=== PATIENT | female | born 1960 | race Caucasian/White ===

== ENCOUNTER 2021-09-25 18:33 | Observation (INO) | payer OTHER, SELFPAY ==
[2021-09-19 15:37] VITALS: BMI 43.1
--- NOTE | 2021-09-19 15:39 | PC.NURSE ---
Report to the Outpatient Waiting Room, entrance under the green pavilion located off [facility], at time _1000_ on date _[id number]_. OR Time: _1200_. - You and your visitor will be asked a series of questions to screen for COVID 19 for your protection. - Only one visitor is allowed at this time. - The patient visitor is requested to leave or wait in car when not with patient. - A mask is required within the hospital. Patients may have clear liquids (water, carbonated beverages, clear teas, apple juice) until 3 hours prior to surgery with a maximum of 20 ounces. - No food from midnight until time of surgery Take the following medications with a SIP of water the morning of surgery: Carvidilol, Gabepentin, and Levothyroxine Medications to discontinue per physician Patient quitting Eliquis 3 days prior to surgery per her cardiologists recommendation.____ Date to take last dose Please no make-up, nail [place] citizen, hairspray, perfume, deodorant, or body powder the day of surgery. No jewelry (including any body piercings) or valuables the day of surgery, leave them at home. Please take a shower or bath the night before, or the morning of, surgery with an antibacterial soap. Wear comfortable, loose fitting clothing. Children are encouraged to wear pajamas. - Jewelry must be removed prior to entering the operating room. Rings and piercings that are not removed may be cut off. - The hospital will not accept responsibility for valuables. - Please leave all valuables, including medications, at home the day of surgery. If you are going home after surgery, a licensed tow bar driver must drive you home. - NO public transportation without another adult. - We recommend that an adult stay with you for 24 hours following discharge. - We also recommend that you do not drive, make important decision, drink alcoholic beverages, or take any drugs that were not prescribed by your health care provider for at least 24 hours after your discharge time. Follow any additional instructions given to you from your surgeon. If you or anyone in your household have experienced Covid symptoms in the past week, please notify your surgeon or the nurse liaison at the phone number below for possible testing. Telephone instructions given to ___Patient and asked if any additional questions and then verbalized understanding. Patient advised to call surgeon office or pre surgery nurse liaison [phone] if any additional questions.
[2021-09-24] VITALS (15 sets, daily range): BP systolic 127–150; BP diastolic 78–96; PULSE 72–96; RESP 10–20; TEMP 36.6–37; O2SAT 93–100
[2021-09-24 10:20] LABS: Glucose Point of Care 204 mg/dl (65-105)
[2021-09-24 10:41] LABS: INR 0.9; Prothrombin Time 12.1 Seconds (11.1-14.7)
[2021-09-24 10:42] LABS: Partial Thromboplastin Time 25.3 SECONDS (22.3-36.8)
[2021-09-24] MEDS: MORPHINE SULFATE INJ (*CRX) 10 MG/ML AMP 2 MG IV PUSH ×5 (12:00→12:55)
[2021-09-24] MEDS: LACTATED RINGERS 1,000 ML 30 ML IV CONT ×2 (12:30→15:03)
--- NOTE | 2021-09-24 12:37 | WPDANESEPPF ---
Anes - Initial Pre Proc Eval Procedure: Operation Date: 09/24/21 12:00 Proposed Procedures p L4-5 Lumbar Elier Laminectomy, Microscopic Lumbar Discectomy - Efrain Hobson MD Date/Time: 09/24/21 12:37 Surgeon: Efrain Hobson MD Pre Op Diagnosis: lumbar disc herniation with spondylosis Patient Data Age: 60 Gender: F Height: 1.7 m Weight: 131.2 kg Last Vital Signs Temp 36.7 C 09/24/21 10:28 Pulse 92 09/24/21 10:28 Resp 20 09/24/21 10:28 BP 141/96 H 09/24/21 10:28 Pulse Ox 99 09/24/21 10:28 Allergies Allergy/AdvReac Type Severity Reaction Status Date / Time latex Allergy Mild Rash Verified 09/24/21 10:26 Sulfa (Sulfonamide Allergy Mild Rash Verified 09/24/21 10:26 Antibiotics) Home Medications Medication Instructions Recorded Confirmed Type apixaban [Eliquis] 5 mg PO QPM 09/19/21 09/24/21 History carvedilol 6.25 mg PO BID 09/19/21 09/24/21 History cyclobenzaprine 10 mg PO TID 09/19/21 09/24/21 History dapagliflozin [Farxiga] 10 mg PO DAILY 09/19/21 09/24/21 History docusate sodium [Colace] 50 mg PO DAILY 09/19/21 09/24/21 History furosemide 40 mg PO QAM 09/19/21 09/24/21 History gabapentin 600 mg PO BID 09/19/21 09/24/21 History glipizide 20 mg PO QAM 09/19/21 09/24/21 History hydrocodone-acetaminophen 1 tablet PO Q6H PRN 09/19/21 09/24/21 History insulin glargine U-300 conc 30 unit SUBCUT HS 09/19/21 09/24/21 History [Toujeo SoloStar U-300 Insulin] insulin lispro [Humalog KwikPen 25 unit SUBCUT TID 09/19/21 09/24/21 History Insulin] levothyroxine 25 mcg PO QAM 09/19/21 09/24/21 History loratadine 10 mg PO DAILY 09/19/21 09/24/21 History losartan 25 mg PO QPM 09/19/21 09/24/21 History potassium chloride 10 meq PO BID 09/19/21 09/24/21 History prednisone 5 mg PO DAILY 09/19/21 09/24/21 History rosuvastatin 20 mg PO QPM 09/19/21 09/24/21 History triamterene-hydrochlorothiazid 1 cap PO BID 09/19/21 09/24/21 History Laboratory Tests 09/24/21 09/24/21 10:11 10:12 PT 12.1 Seconds Seconds (11.1-14.7) INR 0.9 APTT 25.3 SECONDS SECONDS (22.3-36.8) POC Capillary Glucose 204 mg/dl H mg/dl (65-105) Patient hx anesthesia problems: none Family hx anesthesia problems: none Results Review: All pre-operative results and documents have been reviewed as part of the pre-operative evaluation. [facility] Past Medical History Medical History (Updated 09/24/21 @ 12:38 by James Edmonds MD) Diabetes HTN (hypertension) Hyperlipidemia Morbid obesity MIRTA (obstructive sleep apnea) Surgical History Surgical History (Updated 09/24/21 @ 12:38 by James Edmonds MD) H/O arthroscopic knee surgery History of section History of cholecystectomy Social History Social History Smoking status: Never smoker Living arrangements: with family Spiritual care concerns: No Anes - Eval Final PreProcedure Day of Procedure 09/24/21 12:37 Patient weight: morbidly obese Heart: regular rate and rhythm Lungs: clear to auscultation Airway: Mallampati scale class II Neurological: alert and oriented Last oral intake: >/= 8 hours ASA classification: IV Emergent: no Anesthetic plan: proceed Anesthesia type and monitoring: general ETT and standard monitoring Results Review: All pre-operative results and documents have been reviewed as part of the pre-operative evaluation. Informed Consent: The patient's anesthetic plan and its attendant risks and benefits were discussed with the patient/family/POA. Questions were solicited and answers provided to the satisfaction of the patient/family/POA.
--- NOTE | 2021-09-24 13:01 | PM.IMHP ---
H&P: HPI History of Present Illness Date/Time: 09/24/21 13:01 Ms. Troy is a 60-year-old female with back and bilateral lower extremity pain alternating from left right who presents for a right-sided hemilaminectomy for bilateral canal decompression and microdiskectomy. She has not changed since we saw her last. She has pain that radiates ultimately into the right and left lower extremities below the knee worse with ambulation and better with rest. She also has back pain. She has rheumatoid arthritis, takes steroids and has diabetes. She is not having any new bowel or bladder difficulty. She does not note consistent specific muscle group weakness of either lower extremity nor any dermatomal numbness. Chief Complaint: Back and leg pain Review of Systems Review of Systems: Shortness of breath with the surgeon, leg cramping, lower extremity edema, high blood pressure, palpitations, constipation, diarrhea, arthritis, back pain, decreased range of motion of the back, gout, joint pain, joint stiffness, extremity weakness, balance issues, numbness and tingling of her extremities, fatigue, Negative on 12 systems except as noted above PMFSH Past Medical History Medical History Diabetes HTN (hypertension) Hyperlipidemia Morbid obesity MIRTA (obstructive sleep apnea) Surgical History Surgical History H/O arthroscopic knee surgery History of section History of cholecystectomy Social History Social History Smoking status: Never smoker Living arrangements: with family Spiritual care concerns: No Meds Home Medications and Allergies Home Medications Medication Instructions Recorded Confirmed Type apixaban [Eliquis] 5 mg PO QPM 09/19/21 09/24/21 History carvedilol 6.25 mg PO BID 09/19/21 09/24/21 History cyclobenzaprine 10 mg PO TID 09/19/21 09/24/21 History dapagliflozin [Farxiga] 10 mg PO DAILY 09/19/21 09/24/21 History docusate sodium [Colace] 50 mg PO DAILY 09/19/21 09/24/21 History furosemide 40 mg PO QAM 09/19/21 09/24/21 History gabapentin 600 mg PO BID 09/19/21 09/24/21 History glipizide 20 mg PO QAM 09/19/21 09/24/21 History hydrocodone-acetaminophen 1 tablet PO Q6H PRN 09/19/21 09/24/21 History insulin glargine U-300 conc 30 unit SUBCUT HS 09/19/21 09/24/21 History [Touwillyo SoloStar U-300 Insulin] insulin lispro [Humalog KwikPen 25 unit SUBCUT TID 09/19/21 09/24/21 History Insulin] levothyroxine 25 mcg PO QAM 09/19/21 09/24/21 History loratadine 10 mg PO DAILY 09/19/21 09/24/21 History losartan 25 mg PO QPM 09/19/21 09/24/21 History potassium chloride 10 meq PO BID 09/19/21 09/24/21 History prednisone 5 mg PO DAILY 09/19/21 09/24/21 History rosuvastatin 20 mg PO QPM 09/19/21 09/24/21 History triamterene-hydrochlorothiazid 1 cap PO BID 09/19/21 09/24/21 History Allergies Allergy/AdvReac Type Severity Reaction Status Date / Time latex Allergy Mild Rash Verified 09/24/21 10:26 Sulfa (Sulfonamide Allergy Mild Rash Verified 09/24/21 10:26 Antibiotics) Vital Signs Vital Signs - 24 hr 09/24/21 10:28 Temperature 98.1 F Pulse Rate 92 Respiratory Rate 20 Blood Pressure 141/96 H Pulse Oximetry 99 Exam Narrative: The patient is a normal appearing obese white female supine in a chair at the side of the bed in modest distress. She is awake, alert, oriented x3, with good fund of knowledge, recall events and fluent speech. Strength is normal to direct confrontation in all muscle groups of the bilateral lower extremities with some giveaway weakness and poor effort. Sensation is intact to light touch throughout the lower extremities in the supine position. Clear to auscultation Regular rate and rhythm Assessment and Plan Additional Plan Ms. Troy is a 60-year-old female with back and leg pain related to the L4-5 proce
[2021-09-24] MEDS: ceFAZolin 3 GM/D5W 100 ML 100 ML IVPB (13:05)
--- NOTE | 2021-09-24 13:08 | WPDHPUPDATE1 ---
History and Physical Update Update Date/Time: 09/24/21 13:08 History and Physical has been reviewed, including an updated exam of the patient. There are NO changes in the patient's condition. Risks, benefits, and alternatives have been discussed and questions answered. Patient agrees to proceed with procedure.
[2021-09-24] MEDS: LIDO 1%/EPINEPHRINE/PF 1:200,000 30 ML VIAL XX (14:22)
--- NOTE | 2021-09-24 14:59 | W.PM.PROC2 ---
Procedure Note - Detailed Date of Procedure 09/24/21 Pre-op Diagnosis lumbar disc herniation with spondylosis Post-op Diagnosis Same Procedure Performed Right L4-5 hemilaminectomy and microscopic lumbar diskectomy Surgeon Efrain Hobson MD Customer Resource Specialist Rocio Anesthesia General Indications Karli is a 60-year-old female with back and leg pain related to spondylosis, stenosis and herniated nucleus pulposus at L4-5 who presents for decompression. Findings Herniated disc mostly reabsorbed, spondylosis, lateral recess stenosis Description of Procedure Karli was brought to the operating room in the supine position, was sedated, intubated and placed under general anesthesia in routine fashion. She was then turned into the prone position on a Jaime frame. The area of operation on her back was examined, marked for incision, prepped and draped in routine sterile fashion. Incision was marked over the L4 and L5 spinous processes in the midline. This area was injected with 0.5% lidocaine with [id number] epinephrine. Intravenous antibiotics given prior to incision. Incision was made 10 blade scalpel down to the lumbodorsal fascia. A subperiosteal dissection of the muscle and soft tissue away from the spinous process and lamina at L4-L5 on the right was performed with a subperiosteal elevator and Bovie cautery. A verifying x-ray was obtained to verify the level of operation. At the L4-5 level a Midas Dionicio drill with an a.m. 8 bit was used to perform a hemilaminectomy and medial facetectomy. Under microscopy the yellow ligament was lifted and removed piecemeal using Kerrison punches. This exposed the dura below. In the lateral epidural space a curved curette was used to define a plane with the dura and additional bone and ligament removed with Kerrison punches. This was done 1st if Petterchak laterally and contralaterally after the lamina and spinous process were undercut with the drill. This was all done under microscopy. The thecal sac was retracted medially. No disc herniation was noted in the epidural space. The axilla of the L5 nerve was explored and no disc material was found in this location. There was no disc material found superiorly. The wound was then copiously irrigated with bacitracin irrigation all bleeding was stopped with bipolar and Bovie cautery and FloSeal. Patient was then allowed to wake up in the operating room was taken to the recovery room in stable condition. There were no immediate complications of this operation. All counts were reported correct at the end of the case. Blood loss was 25 cc. The patient was neurologically at her baseline postoperatively. Implants none Estimated Blood Loss 25.0 IV Fluids 1,000 Drains No Complications No immediate complications Condition Stable Disposition PACU
[2021-09-24 15:19] LABS: Glucose Point of Care 162 mg/dl (65-105)
[2021-09-24] MEDS: fentaNYL CITRATE INJ (*CRX) 100 MCG/2 ML VIAL 25 MCG IV PUSH ×6 (15:39→16:41)
[2021-09-24] MEDS: CYCLOBENZAPRINE HCL 10 MG TABLET PO (17:38)
[2021-09-24] MEDS: HYDROcodone/acetaminophen (*CRX) 10-325 MG TABLET 1 TAB PO ×2 (17:38→22:07)
[2021-09-24] MEDS: KCL 20 MEQ/D5/0.45% SOD CHL 1,000 ML 100 ML IV CONT (18:20)
[2021-09-24] MEDS: MORPHINE SULFATE (*CRX) 2 MG/ML INJ IV PUSH ×2 (18:20→23:11)
[2021-09-24] MEDS: carvediloL 6.25 MG TABLET PO (18:20)
[2021-09-24] MEDS: GABAPENTIN 300 MG CAPSULE 600 MG PO (18:21)
[2021-09-24] MEDS: TRIAMTERENE 37.5 MG/HCTZ 25 MG (MAXZIDE) TABLET 1 TAB PO (18:21)
[2021-09-24] MEDS: POTASSIUM CHLORIDE 10 MEQ TABLET.ER PO (18:21)
[2021-09-24] MEDS: LOSARTAN POTASSIUM 25 MG TABLET PO (18:22)
[2021-09-24] MEDS: ROSUVASTATIN 10 MG TABLET 20 MG PO (18:22)
[2021-09-24 20:28] LABS: Glucose Point of Care 374 mg/dl (65-105)
[2021-09-24] MEDS: INSULIN GLARGINE (*BKC) 100 UNITS/ML 30 UNITS SUB-Q (20:40)
[2021-09-24] MEDS: DOCUSATE SODIUM 100 MG CAPSULE PO (20:40)
[2021-09-25] VITALS (7 sets, daily range): BP systolic 114–160; BP diastolic 49–89; PULSE 61–103; RESP 16–20; TEMP 36.4–38; O2SAT 95–99
--- NOTE | ~2021-09-25 | XR_ITS ---
CORRECTED REPORT EXAMINATION CHANGED TO XR fluoroscopy no charge 10/16/2021 sef EXAMINATION: XR fluoroscopy no charge DATE: 09/24/2021 12:55 CDT INDICATION: L4-5 LAMINECTOMY, MICRO LUMBAR DISCECTOMY . TECHNIQUE: 2 fluoroscopic images of the lower lumbar spine were obtained during L4-5 laminectomy, microlumbar discectomy performed by the surgeon. I was not present in the operating room. Fluoroscopy exposure time was 4.1 seconds. Cumulative dose 3.36 mGy. COMPARISON: None FINDINGS: The last fully formed disc is presumed to represent L5-S1. A surgical probe localizes the L5 spinous process and vertebral body. Grade 1 anterolisthesis of L4 on L5. IMPRESSION: Fluoroscopic documentation of intraoperative lumbar spinal level identification. Reviewed, dictated and finalized at location K. MTDD IMPRESSION: Fluoroscopic documentation of intraoperative lumbar spinal level identification .
[2021-09-25] MEDS: CYCLOBENZAPRINE HCL 10 MG TABLET PO ×4 (01:04→23:13)
[2021-09-25] MEDS: MORPHINE SULFATE (*CRX) 2 MG/ML INJ IV PUSH ×5 (01:04→23:12)
[2021-09-25] MEDS: DEXAMETHASONE 2 MG TABLET 10 MG PO (02:01)
[2021-09-25] MEDS: HYDROcodone/acetaminophen (*CRX) 10-325 MG TABLET 1 TAB PO ×5 (04:15→21:22)
[2021-09-25 06:17] LABS: Potassium 4.8 mmol/L (3.4-5.0)
[2021-09-25] MEDS: LEVOTHYROXINE SODIUM 25 MCG TABLET PO (06:30)
[2021-09-25 07:21] LABS: Glucose Point of Care 279 mg/dl (65-105)
[2021-09-25] MEDS: GABAPENTIN 300 MG CAPSULE 600 MG PO ×2 (09:32→16:35)
[2021-09-25] MEDS: glipiZIDE XL 5 MG TABCR 20 MG PO (09:32)
[2021-09-25] MEDS: DOCUSATE SODIUM 100 MG CAPSULE PO ×2 (09:32→20:22)
[2021-09-25] MEDS: predniSONE 5 MG TABLET PO (09:32)
[2021-09-25] MEDS: TRIAMTERENE 37.5 MG/HCTZ 25 MG (MAXZIDE) TABLET 1 TAB PO ×2 (09:32→16:36)
[2021-09-25] MEDS: FUROSEMIDE 40 MG TABLET PO (09:32)
[2021-09-25] MEDS: carvediloL 6.25 MG TABLET PO ×2 (09:32→16:36)
[2021-09-25] MEDS: LORATADINE 10 MG TABLET PO (09:32)
[2021-09-25] MEDS: EMPAGLIFLOZIN 25 MG TABLET PO (09:33)
[2021-09-25] MEDS: POTASSIUM CHLORIDE 10 MEQ TABLET.ER PO ×2 (09:33→16:36)
[2021-09-25] MEDS: INSULIN ASPART (*BKC) 100 UNITS/ML 25 UNITS SUB-Q ×3 (09:35→16:36)
[2021-09-25] MEDS: KCL 20 MEQ/D5/0.45% SOD CHL 1,000 ML 100 ML IV CONT (09:39)
[2021-09-25] MEDS: HYDROcodone/acetaminophen (*CRX) 5-325 MG TABLET 1 TAB PO (10:09)
[2021-09-25 11:31] LABS: Glucose Point of Care 404 mg/dl (65-105)
[2021-09-25 16:33] LABS: Glucose Point of Care 310 mg/dl (65-105)
--- NOTE | 2021-09-25 18:25 | WPDPN ---
Progress Note: A&P Assessment and Plan (1) Lumbar stenosis: Code(s): M48.061 - Spinal stenosis, lumbar region without neurogenic claudication Status: Acute Plan Ms. Troy is doing as expected postop day 1 status post hemilaminectomy at L4-5. She should continue with activity as tolerated. We will have physical therapy stop by. She is neurologically intact. If she is doing well she may be discharged tomorrow. Pain control is her main issue. Subjective Date/time seen: 09/25/21 18:25 Ms. Troy is postop day 1 status post right L4-5 hemilaminectomy. Her main complaint is of pain in her back near the operation radiating into her proximal lower extremities. She has been ambulatory today and been up and down several times. She is not having any new bowel or bladder or other constitutional problems. She reports no new neurologic issues in her legs. Exam Neuro: Other: Strength is normal in the bilateral lower extremities to direct confrontation Sensation is intact to light touch in lower extremities Her dressing is clean dry and intact. Objective Data Vital Signs Vital Signs: Vital Signs - 24 hr 09/24/21 19:15 09/24/21 20:01 09/24/21 20:00 Temperature 98.2 F 98.1 F Pulse Rate 94 96 96 Respiratory Rate 18 18 18 Blood Pressure 147/78 H 139/79 Pulse Oximetry 96 96 96 Oxygen Delivery Nasal Cannula Oxygen Flow Rate 2 09/25/21 00:01 09/25/21 04:00 09/25/21 08:00 Temperature 100.4 F H 97.6 F 97.6 F Pulse Rate 61 92 94 Respiratory Rate 18 18 18 Blood Pressure 139/49 L 160/89 H 136/89 Pulse Oximetry 96 99 98 Oxygen Delivery Oxygen Flow Rate 09/25/21 12:00 09/25/21 09:45 09/25/21 16:00 Temperature 97.9 F 98.0 F Pulse Rate 92 93 Respiratory Rate 20 20 Blood Pressure 149/82 H 145/78 H Pulse Oximetry 99 99 Oxygen Delivery Room Air Oxygen Flow Rate Intake/Output Intake/Output: Intake & Output 09/22/21 09/23/21 09/24/21 09/25/21 23:59 23:59 23:59 23:59 Intake Total 2800 2500 Output Total 700 Balance 2800 1800 Meds/Results Medications: Active Medications Generic Name Dose Route Start Last Admin Trade Name Freq PRN Reason Stop Dose Admin Hydrocodone Bitart/Acetaminophen 1 tab 09/24/21 15:05 09/25/21 10:09 Hydrocodone/Acetaminophen (*Crx) 5-325 Mg Tablet PO 1 tab Q4H PRN Administration Pain Rated 4-6 Hydrocodone Bitart/Acetaminophen 1 tab 09/24/21 15:05 09/25/21 16:35 Hydrocodone/Acetaminophen (*Crx) 10-325 Mg Tablet PO 1 tab Q4H PRN Administration Pain Rated 7-10 Al Hydrox/Mg Hydrox/Simethicone 20 ml 09/24/21 15:05 Mag Hydrox/Al Hydrox/Simeth 30 Ml Udc PO Q4H PRN Indigestion/Heartburn Benzocaine 1 lozenge 09/24/21 18:29 Benzocaine/Menthol (*Bkc) 18 Ea Lozenge PO PRN PRN Sore Throat Bisacodyl 10 mg 09/24/21 15:05 Bisacodyl 10 Mg Suppository RECTAL DAILY PRN Constipation Carvedilol 6.25 mg 09/24/21 17:00 09/25/21 16:36 Carvedilol 6.25 Mg Tablet PO 6.25 mg BID MONI Administration Cyclobenzaprine HCl 10 mg 09/24/21 15:05 09/25/21 16:35 Cyclobenzaprine Hcl 10 Mg Tablet PO 10 mg TID PRN Administration Muscle Spasms Docusate Sodium 100 mg 09/24/21 21:00 09/25/21 09:32 Docusate Sodium 100 Mg Capsule PO 100 mg Q12HR MONI Administration Empagliflozin 25 mg 09/25/21 09:00 09/25/21 09:33 Empagliflozin 25 Mg Tablet PO 25 mg DAILY MONI Administration Furosemide 40 mg 09/25/21 09:00 09/25/21 09:32 Furosemide 40 Mg Tablet PO 40 mg QAM MONI Administration Gabapentin 600 mg 09/24/21 17:00 09/25/21 16:35 Gabapentin 300 Mg Capsule PO 600 mg BID MONI Administration Glipizide 20 mg 09/25/21 09:00 09/25/21 09:32 Glipizide Xl 5 Mg Tabcr PO 20 mg QAM MONI Administration Potassium Chloride/Dextrose/Sod Cl 1,000 mls @ 100 mls/hr 09/24/21 15:05 09/25/21 13:40 Kcl 20 Meq/D5/0.45% Sod Chl IV CONT Not Give
[2021-09-25] MEDS: LOSARTAN POTASSIUM 25 MG TABLET PO (20:22)
[2021-09-25] MEDS: ROSUVASTATIN 10 MG TABLET 20 MG PO (20:22)
[2021-09-25] MEDS: INSULIN GLARGINE (*BKC) 100 UNITS/ML 30 UNITS SUB-Q (20:22)
[2021-09-25 21:15] LABS: Glucose Point of Care 297 mg/dl (65-105)
[2021-09-25] MEDS: WATER FOR IRRIGATION, STERILE 1,000 ML BOTTLE 1000 ML (23:05)
[2021-09-26] VITALS (7 sets, daily range): BP systolic 142–150; BP diastolic 79–84; PULSE 74–100; RESP 13–18; TEMP 36.3–36.6; O2SAT 95–100
[2021-09-26] MEDS: HYDROcodone/acetaminophen (*CRX) 10-325 MG TABLET 1 TAB PO ×4 (04:13→20:00)
[2021-09-26] MEDS: LEVOTHYROXINE SODIUM 25 MCG TABLET PO (05:18)
[2021-09-26 08:02] LABS: Glucose Point of Care 185 mg/dl (65-105)
--- NOTE | 2021-09-26 08:08 | WPDPN ---
Progress Note: A&P Assessment and Plan (1) Lumbar stenosis: Code(s): M48.061 - Spinal stenosis, lumbar region without neurogenic claudication Status: Acute Plan Ms. Troy is postop day 2 status post hemilaminectomy at L4-5. Physical therapy will see her this morning. If she is making transfers independently and ambulating that she may be discharged home. I will give her 10mg of Decadron this morning to decrease inflammation in her nerve. Discharge instructions were given. Subjective Date/time seen: 09/26/21 08:0 Karli is postop day 2 status post right-sided L4-5 hemilaminectomy for stenosis and disc herniation. She is doing somewhat better this morning. She has some residual discomfort in her right lower extremity. The left lower extremity is better. She is not having any new bowel or bladder or other constitutional problems. She has no new neurologic issues in her leg Exam Neuro: Other: Strength and sensation are normal in the bilateral lower extremities to direct confrontation Sensation is intact to light touch throughout the lower extremities Dressing is clean, dry and intact. Objective Data Vital Signs Vital Signs: Vital Signs - 24 hr 09/25/21 12:00 09/25/21 09:45 09/25/21 16:00 Temperature 97.9 F 98.0 F Pulse Rate 92 93 Respiratory Rate 20 20 Blood Pressure 149/82 H 145/78 H Pulse Oximetry 99 99 Oxygen Delivery Room Air 09/25/21 19:56 09/25/21 23:13 09/26/21 02:52 Temperature 97.8 F Pulse Rate 95 103 H 96 Respiratory Rate 18 16 13 Blood Pressure 114/79 Pulse Oximetry 96 95 95 Oxygen Delivery Autopap Autopap 09/26/21 04:03 09/26/21 04:58 Temperature 97.3 F L Pulse Rate 74 99 Respiratory Rate 16 14 Blood Pressure 142/84 H Pulse Oximetry 96 95 Oxygen Delivery Autopap Intake/Output Intake/Output: Intake & Output 09/23/21 09/24/21 09/25/21 09/26/21 23:59 23:59 23:59 23:59 Intake Total 2800 2500 450 Output Total 700 Balance 2800 1800 450 Meds/Results Medications: Active Medications Generic Name Dose Route Start Last Admin Trade Name Freq PRN Reason Stop Dose Admin Hydrocodone Bitart/Acetaminophen 1 tab 09/24/21 15:05 09/25/21 10:09 Hydrocodone/Acetaminophen (*Crx) 5-325 Mg Tablet PO 1 tab Q4H PRN Administration Pain Rated 4-6 Hydrocodone Bitart/Acetaminophen 1 tab 09/24/21 15:05 09/26/21 04:13 Hydrocodone/Acetaminophen (*Crx) 10-325 Mg Tablet PO 1 tab Q4H PRN Administration Pain Rated 7-10 Al Hydrox/Mg Hydrox/Simethicone 20 ml 09/24/21 15:05 Mag Hydrox/Al Hydrox/Simeth 30 Ml Udc PO Q4H PRN Indigestion/Heartburn Benzocaine 1 lozenge 09/24/21 18:29 Benzocaine/Menthol (*Bkc) 18 Ea Lozenge PO PRN PRN Sore Throat Bisacodyl 10 mg 09/24/21 15:05 Bisacodyl 10 Mg Suppository RECTAL DAILY PRN Constipation Carvedilol 6.25 mg 09/24/21 17:00 09/25/21 16:36 Carvedilol 6.25 Mg Tablet PO 6.25 mg BID MONI Administration Cyclobenzaprine HCl 10 mg 09/24/21 15:05 09/25/21 23:13 Cyclobenzaprine Hcl 10 Mg Tablet PO 10 mg TID PRN Administration Muscle Spasms Docusate Sodium 100 mg 09/24/21 21:00 09/25/21 20:22 Docusate Sodium 100 Mg Capsule PO 100 mg Q12HR MONI Administration Empagliflozin 25 mg 09/25/21 09:00 09/25/21 09:33 Empagliflozin 25 Mg Tablet PO 25 mg DAILY MONI Administration Furosemide 40 mg 09/25/21 09:00 09/25/21 09:32 Furosemide 40 Mg Tablet PO 40 mg QAM MONI Administration Gabapentin 600 mg 09/24/21 17:00 09/25/21 16:35 Gabapentin 300 Mg Capsule PO 600 mg BID MONI Administration Glipizide 20 mg 09/25/21 09:00 09/25/21 09:32 Glipizide Xl 5 Mg Tabcr PO 20 mg QAM MONI Administration Potassium Chloride/Dextrose/Sod Cl 1,000 mls @ 100 mls/hr 09/24/21 15:05 09/25/21 20:00 Kcl 20 Meq/D5/0.45% Sod Chl IV CONT Not Given .Q10H MNOI Insulin Aspart 25 units 09/25/21 08:00 0
[2021-09-26] MEDS: INSULIN ASPART (*BKC) 100 UNITS/ML 25 UNITS SUB-Q ×3 (09:17→16:49)
[2021-09-26] MEDS: carvediloL 6.25 MG TABLET PO ×2 (09:19→16:52)
[2021-09-26] MEDS: predniSONE 5 MG TABLET PO (09:19)
[2021-09-26] MEDS: TRIAMTERENE 37.5 MG/HCTZ 25 MG (MAXZIDE) TABLET 1 TAB PO ×2 (09:19→16:52)
[2021-09-26] MEDS: LORATADINE 10 MG TABLET PO (09:19)
[2021-09-26] MEDS: glipiZIDE XL 5 MG TABCR 20 MG PO (09:19)
[2021-09-26] MEDS: GABAPENTIN 300 MG CAPSULE 600 MG PO ×2 (09:19→16:51)
[2021-09-26] MEDS: POTASSIUM CHLORIDE 10 MEQ TABLET.ER PO ×2 (09:19→16:52)
[2021-09-26] MEDS: FUROSEMIDE 40 MG TABLET PO (09:19)
[2021-09-26] MEDS: EMPAGLIFLOZIN 25 MG TABLET PO (09:20)
[2021-09-26] MEDS: DOCUSATE SODIUM 100 MG CAPSULE PO ×2 (09:20→20:00)
[2021-09-26 11:48] LABS: Glucose Point of Care 178 mg/dl (65-105)
[2021-09-26] MEDS: CYCLOBENZAPRINE HCL 10 MG TABLET PO ×2 (13:23→16:55)
[2021-09-26 16:35] LABS: Glucose Point of Care 334 mg/dl (65-105)
[2021-09-26] MEDS: INSULIN ASPART (*BKC) 100 UNITS/ML SUB-Q (16:49)
[2021-09-26] MEDS: ROSUVASTATIN 10 MG TABLET 20 MG PO (16:53)
[2021-09-26] MEDS: LOSARTAN POTASSIUM 25 MG TABLET PO (16:53)
[2021-09-26] MEDS: HYDROcodone/acetaminophen (*CRX) 5-325 MG TABLET 1 TAB PO (16:55)
[2021-09-26] MEDS: INSULIN GLARGINE (*BKC) 100 UNITS/ML 30 UNITS SUB-Q (20:00)
[2021-09-26 20:51] LABS: Glucose Point of Care 372 mg/dl (65-105)
[2021-09-26 22:33] LABS: Glucose Point of Care 287 mg/dl (65-105)
[2021-09-27] MEDS: HYDROcodone/acetaminophen (*CRX) 10-325 MG TABLET 1 TAB PO ×3 (00:06→10:33)
[2021-09-27] MEDS: CYCLOBENZAPRINE HCL 10 MG TABLET PO ×3 (00:06→13:10)
[2021-09-27 00:10] VITALS: PULSE 94; RESP 14; O2SAT 96
[2021-09-27 04:17] VITALS: BP 146/80; PULSE 72; RESP 18; TEMP 36.4; O2SAT 98
[2021-09-27 04:20] VITALS: PULSE 76; RESP 14; O2SAT 96
[2021-09-27] MEDS: LEVOTHYROXINE SODIUM 25 MCG TABLET PO (05:46)
[2021-09-27 06:35] LABS: Potassium 3.8 mmol/L (3.4-5.0)
[2021-09-27 07:51] LABS: Glucose Point of Care 194 mg/dl (65-105)
[2021-09-27 09:00] VITALS: BP 142/76; PULSE 75; RESP 18; TEMP 36.2; O2SAT 98
[2021-09-27] MEDS: POTASSIUM CHLORIDE 10 MEQ TABLET.ER PO (10:33)
[2021-09-27] MEDS: carvediloL 6.25 MG TABLET PO (10:34)
[2021-09-27] MEDS: predniSONE 5 MG TABLET PO (10:34)
[2021-09-27] MEDS: LORATADINE 10 MG TABLET PO (10:34)
[2021-09-27] MEDS: EMPAGLIFLOZIN 25 MG TABLET PO (10:34)
[2021-09-27] MEDS: GABAPENTIN 300 MG CAPSULE 600 MG PO (10:34)
[2021-09-27] MEDS: glipiZIDE XL 5 MG TABCR 20 MG PO (10:34)
[2021-09-27] MEDS: TRIAMTERENE 37.5 MG/HCTZ 25 MG (MAXZIDE) TABLET 1 TAB PO (10:34)
[2021-09-27] MEDS: FUROSEMIDE 40 MG TABLET PO (10:34)
[2021-09-27] MEDS: DOCUSATE SODIUM 100 MG CAPSULE PO (10:42)
[2021-09-27] MEDS: INSULIN ASPART (*BKC) 100 UNITS/ML 25 UNITS SUB-Q ×2 (10:43→13:01)
[2021-09-27 11:51] LABS: Glucose Point of Care 295 mg/dl (65-105)
[2021-09-27] MEDS: INSULIN ASPART (*BKC) 100 UNITS/ML SUB-Q (13:01)
[2021-09-27] MEDS: HYDROcodone/acetaminophen (*CRX) 5-325 MG TABLET 1 TAB PO (13:10)
--- NOTE | 2021-11-12 17:04 | PM.DS ---
DS: Admitting Diagnosis Discharge Date 09/27/21 Admitting Diagnosis Spondylolisthesis, lumbar disc herniation, lumbar stenosis DS: Discharge Diagnosis Discharge Diagnosis (1) Lumbar stenosis: Code(s): M48.061 - Spinal stenosis, lumbar region without neurogenic claudication Status: Acute DS: Summary Hospital Course Hospital Course: Ms. Troy was taken to the operating room on 09/24 21 with the aforementioned operation was performed without complication. This was a right L4-5 hemilaminectomy and microdiskectomy for herniated disc and stenosis. She went to the floor postoperatively. Physical and occupational therapy were involved in her care. She was slow to react ambulate. She had pain control issues. However, by the time of her discharge she was eating, ambulating, emptying her bladder and her pain was under control with by mouth pain medicine. Her wound remained clean dry and intact. She was afebrile with stable vital signs. She was therefore allowed to be discharged to home. She remained neurologically intact throughout her hospitalization. Status at Discharge Cognitive/behavioral status at discharge: Improved Time Spent with Patient Time attestation: Total time spent providing and/or coordinating discharge services: Exam Narrative: at discharge the patient's strength was normal in the bilateral lower extremities to direct confrontation, sensation was intact to light touch throughout the lower extremities. Her wound was clean, dry and intact. She was making transfers and ambulating independently with some antalgia. Discharge Plan Discharge Attending physician on discharge: Efrain Hobson Consulting providers: Ashley Islas NP ; Alfredo Rosen Discharging Clinician: Efrain Hobson Anticipated Discharge Date/Time: 09/27/21 17:08 Patient Disposition: Home Health Service Activity: may shower and may drive after 2 weeks Diet: as tolerated Discharge Instructions: Remove dressing tomorrow morning. No lifting more than 10 lb. No bending and twisting at the waist while standing. Water may run over the dressing and wound. Pat dry. Do not scrub or a immerse. Care Coordination: Patient to have [facility] for PT/OT eval and treat, and care home. They can be reached at [phone]. RN Please fax discharge instructions to [phone]. Patient Instructions: Antibiotic Form, Laminectomy (DC) Stand Alone Forms: General Discharge Information Follow-up/Referrals: Efrain Hobson MD [Physician] - Discharge Medications: New hydrocodone-acetaminophen 5-325 mg tablet 1 tablet PO Q4H PRN (Reason: Pain Rated 4-6) Qty: 30 0RF Rx Instructions: May take 1 or 2 pills at each dose point. Continued cyclobenzaprine 10 mg tablet 10 mg PO TID furosemide 40 mg tablet 40 mg PO QAM carvedilol 6.25 mg tablet 6.25 mg PO BID glipizide 10 mg tablet extended release 24hr 20 mg PO QAM prednisone 5 mg tablet 5 mg PO DAILY docusate sodium 50 mg Capsule 50 mg PO DAILY potassium chloride 10 mEq tablet extended release 10 meq PO BID triamterene-hydrochlorothiazid 37.5-25 mg capsule 1 cap PO BID levothyroxine 25 mcg tablet 25 mcg PO QAM losartan 25 mg tablet 25 mg PO QPM gabapentin 300 mg capsule 600 mg PO BID loratadine 10 mg tablet 10 mg PO DAILY rosuvastatin 20 mg tablet 20 mg PO QPM Farxiga 10 mg tablet 10 mg PO DAILY insulin lispro [Humalog KwikPen Insulin] 100 unit/mL insulin pen 25 unit SUBCUT TID Touwillyo SoloStar U-300 Insulin 300 unit/mL (1.5 mL) insulin pen 30 unit SUBCUT HS Held Eliquis 5 mg tablet 5 mg PO QPM Hold Instructions: Resume on 10/01/21. may resume 1 week after surgery Rx Instructions: quitting 3 days before surgery per sales lead. Discontinued hydrocodone-acetaminophen 7.5-325 mg tablet 1
== END 2021-09-27 13:55 | disposition home health service (06) ==
LOC: ANHSURGERY 19:20 → ANH3MED 19:20
PROVIDERS: Anesthesiology; Admitting Provider Neurological Surgery; Visit Provider Neurological Surgery
PROC: (CPT 63030; principal; 2021-09-24 12:00)
DX: M51.26 Other intervertebral disc displacement, lumbar region (principal); M47.896 Other spondylosis, lumbar region; M48.061 Spinal stenosis, lumbar region without neurogenic claudication; E11.9 Type 2 diabetes mellitus without complications; I10 Essential (primary) hypertension; E78.5 Hyperlipidemia, unspecified; G47.33 Obstructive sleep apnea (adult) (pediatric); E66.01 Morbid (severe) obesity due to excess calories; Z68.42 Body mass index [BMI] 45.0-49.9, adult; Z79.01 Long term (current) use of anticoagulants; Z79.84 Long term (current) use of oral hypoglycemic drugs; Z79.4 Long term (current) use of insulin; Z79.891 Long term (current) use of opiate analgesic; Z79.52 Long term (current) use of systemic steroids
CPT/HCPCS: 63030; 36415; 77002; 82948; 84132; 85610; 85730; 97162; 97166; 97530; 97535; A9270; G0378; J0330; J0690; J1100; J1815; J2250; J2270; J2405; J2704; J3010; J3480; J7120; J7512; J8540

== ENCOUNTER 2023-01-08 15:24 | Outpatient (CLI) | payer OTHER, SELFPAY ==
--- NOTE | ~2023-01-08 | CT_ITS ---
Noncontrast CT scan of the lumbar spine CLINICAL HISTORY: Spinal stenosis TECHNIQUE: Axial noncontrast imaging of the lumbar spine was performed. Sagittal and coronal reformat joan images were constructed. Dose reduction technique was used on this scan by utilizing automated ex posure control and iterative reconstruction technique. The dose-length product (DLP) was 1330.28 mGy- cm. FINDINGS: No fracture identified. There is 5 mm anterolisthesis of L3 over L4. There is 5 mm anteroli sthesis of L4 over L5. At L1-L2, there is severe degenerative disc narrowing. No significant disc bulge evident. There is mi nimal facet arthropathy. No central canal stenosis or definite neural foraminal narrowing. At L2-L3, there is moderate degenerative disc narrowing. There is disc bulge and severe facet arthrop athy, with probable moderate to severe central canal stenosis. There is probable severe left neural f oraminal narrowing. Right neural foramen is preserved. At L3-L4, there is severe degenerative disc narrowing. Disc bulge and facet arthropathy result in pro bable severe central canal stenosis/thecal sac compression. There is severe bilateral neural foramina l compromise, left worse than right. At L4-L5, there is disc bulge/uncovering with severe facet arthropathy. There is probable severe cent ral canal stenosis/thecal sac compression. There is severe bilateral neural foraminal narrowing. At L5-S1, there is probable disc bulge with mild facet arthropathy. No definite central canal stenosi s. There is probable moderate bilateral neural foraminal narrowing. Paravertebral soft tissues are unremarkable. Impression: 5 mm anterolisthesis of L3 over L4. 5 mm anterolisthesis of L4 over L5. Severe degenerative spondylosis, with multilevel central canal stenosis/thecal sac compression and mu ltilevel neural foraminal narrowing. Findings are probably worst at L2-L3, L3-L4, L4-L5. Reviewed, dictated and finalized at location M. Impression: 5 mm anterolisthesis of L3 over L4. 5 mm anterolisthesis of L4 over L5. Severe degenerative spondylosis, with multilevel central canal stenosis/thecal sac compression and multilevel neural foraminal narrowing. Findings are probabl y worst at L2-L3, L3-L4, L4-L5.
== END 2023-01-08 15:25 | disposition home or self-care (01) ==
PROVIDERS: Visit Provider Neurological Surgery
DX: M48.061 Spinal stenosis, lumbar region without neurogenic claudication (principal); M47.816 Spondylosis without myelopathy or radiculopathy, lumbar region; M43.16 Spondylolisthesis, lumbar region
CPT/HCPCS: 72131

== ENCOUNTER 2023-02-20 01:47 | Day surgery (SDC) | payer OTHER, SELFPAY ==
[2023-02-11 10:04] VITALS: BMI 42.5
--- NOTE | 2023-02-11 10:10 | PC.NURSE ---
Report to the Outpatient Waiting Room, entrance under the green pavilion located off [facility], at time _0930_ on date _[id number]_. Planned Procedure Time: _1130_. Time changes happen often and if your time is changed the preop area will call you the afternoon before. - You and your visitor will be asked to self-screen and do not enter if you have any COVID symptoms. - A mask is optional within the hospital at this time. Patients may have clear liquids (water, carbonated beverages, clear teas, apple juice) until 3 hours prior to surgery with a maximum of 20 ounces. - No food from midnight until time of surgery Take the following medications with a SIP of water the morning of surgery: ___Carvidilol, Gabapentin, Levothyroxine, Prednisone DO NOT STOP ANY OF YOUR OTHER PRESCRIPTION MEDICATIONS PRIOR TO SURGERY ?EXCEPT THE FOLLOWING Medications to discontinue per physician Eliquis Date to take last nrak___[id number] Please no make-up, nail maltese, hairspray, perfume, deodorant, or body powder the day of surgery. No jewelry (including any body piercings) or valuables the day of surgery, leave them at home. Please take a shower or bath the night before, or the morning of, surgery with an antibacterial soap. Wear comfortable, loose fitting clothing. - Jewelry must be removed prior to entering the operating room. Rings and piercings that are not removed may be cut off. - The hospital will not accept responsibility for valuables. - Please leave all valuables, including medications, at home the day of surgery. If you are going home after surgery, a licensed van cdl driver must drive you home. - NO public transportation without another adult if you receive anesthesia. - We recommend that an adult stay with you for 24 hours following discharge. - We also recommend that you do not drive, make important decision, drink alcoholic beverages, or take any drugs that were not prescribed by your health care provider for at least 24 hours after your discharge time. Follow any additional instructions given to you from your surgeon. If you or anyone in your household have experienced Covid symptoms in the past week, please notify your surgeon or the nurse liaison at the phone number below for possible testing. Telephone instructions given to __Patient__and asked if any additional questions and then verbalized understanding. Patient advised to call surgeon office or pre surgery nurse liaison [phone] if any additional questions.
[2023-02-20] VITALS (18 sets, daily range): BP systolic 129–176; BP diastolic 54–95; PULSE 70–82; RESP 12–18; TEMP 36.1–37.4; O2SAT 93–100
--- NOTE | ~2023-02-20 | XR_ITS ---
EXAMINATION: XR fluoroscopy no charge DATE: 02/20/2023 13:53 INDICATION: Lumbar microdiscectomy TECHNIQUE: Single lateral fluoroscopic image of the mid to lower lumbar spine was obtained during pro cedure performed by Dr. Hobson. Radiologist was not present for the imaging or procedure. The amoun t of fluoroscopy time used during this procedure was 0.1 minutes. COMPARISON: CT dated 01/08/2023 FINDINGS: No significant change in grade 1 anterolisthesis L3 on L4 and L4 on L5 with severe disc height loss a t L3-L4, moderate disc height loss at L4-L5 and mild disc height loss at L3-L4 and L5-S1. Soft tissue retractors, lap sponge markers and a metallic probe projects over the soft tissues posterior to the spinous processes of L3 and L4. IMPRESSION: 1. Fluoroscopy utilized during neurosurgical procedure at the lumbar spine. See procedure note for fu rther detail. Reviewed, dictated and finalized at location A. IMPRESSION: 1. Fluoroscopy utilized during neurosurgical procedure at the lumbar spine. See procedure note for further detail.
--- NOTE | 2023-02-20 08:51 | ECG_ITS ---
Measurements Intervals [place] Rate: 69 P: 74 VT: 217 QRS: -37 QRSD: 101 T: 7 QT: 415 QTc: 446 Interpretive Statements SINUS RHYTHM WITH FIRST DEGREE AV BLOCK LEFT AXIS DEVIATION NONSPECIFIC T-WAVE ABNORMALITY BORDERLINE ECG NO PREVIOUS ECG AVAILABLE FOR COMPARISON Electronically Signed On 02-20-2023 17:17:19 CDT by Roldan Sandhu M.D.
[2023-02-20] MEDS: LACTATED RINGERS 1,000 ML 30 ML IV CONT ×2 (09:57→14:01)
[2023-02-20 10:03] LABS: Glucose Point of Care 185 mg/dl (65-105)
[2023-02-20 10:03] LABS: Hemoglobin A1C 7.5 % (<5.7)
[2023-02-20] MEDS: fentaNYL CITRATE INJ (*CRX) 100 MCG/2 ML VIAL 50 MCG IV PUSH (10:27)
[2023-02-20] MEDS: ceFAZolin 3 GM/D5W 100 ML 100 ML IVPB (11:52)
--- NOTE | 2023-02-20 12:01 | PM.IMHP ---
H&P: HPI History of Present Illness Date/Time: 02/20/23 12:01 Chief Complaint: Devi is a 8-year-old female with back and leg pain related to pathology at L3-5 on the left presents for decompression. She has not changed appreciably since we last saw her. She does not have specific muscle group weakness or dermatomal numbness. She is not having bowel or bladder difficulty. Review of Systems Review of Systems: Patient denies shortness of breath, cough, fever, chills, nausea, vomiting, weight loss, weight gain, chest pain, dysuria. She has back and leg pain as above. Review of systems otherwise negative on 12 systems except as noted elsewhere. [facility] Past Medical History Medical History Diabetes HTN (hypertension) Hyperlipidemia Morbid obesity MIRTA (obstructive sleep apnea) Surgical History Surgical History H/O arthroscopic knee surgery History of section History of cholecystectomy Social History Social History (Updated 12/23/22 @ 09:45 by Patria Longoria MA) Social History: Karli is very confident filling out medical forms. In the last 12 months she has not received assistance from an organization or program. Smoking status: Never smoker Lack of Transportation: No Lack of Food: Never True Current Housing: I Have Housing Concerned About Future Housing: No Difficulty Paying Gas/Electric Bills: No Difficulty Paying for Meds: No Currently Unemployed: No Education: Trade/Vocational Certificate Difficulty w/ Childcare or Family Care: No Living arrangements: with family Spiritual care concerns: No Meds Home Medications and Allergies Home Medications Medication Instructions Recorded Confirmed Type apixaban 5 mg tablet (Eliquis) 5 mg PO QPM 09/19/21 02/11/23 History carvedilol 6.25 mg tablet 6.25 mg PO BID 09/19/21 02/11/23 History cyclobenzaprine 10 mg tablet 10 mg PO TID PRN Muscle Spasm 09/19/21 02/11/23 History dapagliflozin propanediol 10 mg 10 mg PO DAILY 09/19/21 02/11/23 History tablet (Farxiga) docusate sodium 50 mg capsule 50 mg PO DAILY 09/19/21 02/11/23 History furosemide 40 mg tablet 40 mg PO QAM 09/19/21 02/11/23 History gabapentin 300 mg capsule 600 mg PO BID 09/19/21 02/11/23 History glipizide 10 mg tablet, extended 20 mg PO QAM 09/19/21 02/11/23 History release 24 hr insulin lispro 100 unit/mL 25 unit subcut TID 09/19/21 02/11/23 History subcutaneous pen (Humalog KwikPen (U-100) Insulin) levothyroxine 25 mcg tablet 25 mcg PO QAM 09/19/21 02/11/23 History loratadine 10 mg tablet 10 mg PO DAILY 09/19/21 02/11/23 History losartan 25 mg tablet 25 mg PO QPM 09/19/21 02/11/23 History potassium chloride 10 mEq 10 meq PO BID 09/19/21 02/11/23 History tablet,extended release prednisone 5 mg tablet 5 mg PO DAILY 09/19/21 02/11/23 History rosuvastatin 20 mg tablet 20 mg PO QPM 09/19/21 02/11/23 History triamterene 37.5 1 cap PO BID 09/19/21 02/11/23 History mg-hydrochlorothiazide 25 mg capsule hydrocodone 5 mg-acetaminophen 325 1 tablet PO Q4H PRN Pain Rated 4-6 09/26/21 02/11/23 Rx mg tablet #30 tabs insulin regular hum U-500 conc 500 40 unit subcut TID 02/11/23 02/11/23 History unit/mL(3 mL) subcut pen (Humulin R U-500 (Conc) Insulin Kwikpen) Allergies Allergy/AdvReac Type Severity Reaction Status Date / Time semaglutide [From Ozempic] Allergy Severe Anaphylaxis Verified 02/20/23 09:21 latex Allergy Mild Rash Verified 02/20/23 09:21 Sulfa (Sulfonamide Allergy Mild Rash Verified 02/20/23 09:21 Antibiotics) Vital Signs Vital Signs - 24 hr 02/20/23 10:04 Temperature 97.4 F L Pulse Rate 75 Respiratory Rate 16 Blood Pressure 148/75 H Pulse Oximetry 97 Oxygen Delivery Room Air Exam Narrative: Strength is 5/5 in all muscle groups of the bilateral lower extremities. Sensation is intact to light
--- NOTE | 2023-02-20 12:13 | WPDHPUPDATE1 ---
History and Physical Update Update Date/Time: 02/20/23 12:13 History and Physical has been reviewed, including an updated exam of the patient. There are NO changes in the patient's condition. Risks, benefits, and alternatives have been discussed and questions answered. Patient agrees to proceed with procedure.
[2023-02-20] MEDS: LIDO 1%/EPINEPHRINE 1:100,000 50 ML VIAL 10 ML INFILTRATE (12:35)
--- NOTE | 2023-02-20 14:08 | P.OP_ITS ---
Procedure Note - Detailed Date of Procedure 02/20/23 Pre-op Diagnosis Left L3-5 lateral recess and foraminal stenosis Post-op Diagnosis Same Procedure Performed Left L3-5 hemilaminectomy and L3-4 and L4-5 of far lateral foraminotomy and m icrodiskectomy Surgeon Efrain Hobson MD Anesthesia General Description of Procedure Patient was brought to the operating room in the supine position, was sedated, intubated placed under general anesthesia in routine fashion. She was entered into the prone position on a Jaime frame. The of operation on her back was examined, marked incision, prepped and draped in routine sterile fashion. Incision was marked over L3-5 spinous processes in the midline. This area was injected with 0.5% lidocaine with [id number] epinephrine. Intravenous antibiotics given prior to incision. Incision was made with a 10 blade scalpel down to the lumbodorsal fascia. A subperiosteal dissection of the muscle soft tissue away the spinous process and lamina on the left at L3-5 was performed with a subperiosteal elevator and Bovie cautery. A verifying x-rays obtained to verify the level of operation. Midas- Dionicio drill was used to perform a hemilaminectomy and medial facetectomy. Was also used perform a lateral resection of the pars and facet at L3-4 L4-5. Medially and under microscopy the yellow ligament was lifted removed piecemeal using Kerrison punches. This was done 1st in the midline and then the lateral recess bilaterally. Curved curette was used to define plane with the dura and then Kerrison punches were used to remove bone and ligament until a dental instrument could be placed in the lateral epidural space to confirm microdecompression. At L3-4 and L4-5 on the left and in the foramen the yellow ligament was lifted under microscopy and removed using Kerrison punches. The nerve root was identified and reflected superiorly. An 11 blade scalpel was used to cut the ligament. Curved curette, Anny curette and Moss rongeur were used to push free and removed fragments of soft and hard disc herniation from beneath the nerve at both levels. The wound was then copiously irrigated with bacitracin irrigation all bleeding was stopped with bipolar and Bovie cautery and Gelfoam thrombin powder. Was then closed in layered fashion with 2-0 Vicryl interrupted sutures in the lumbodorsal fascia and Kimi's layer. 3-0 Vicryl buried interrupted sutures were placed in the dermis and skin was closed with a running 4-0 Monocryl subcuticular stitch and dressed with Dermabond. The patient was allowed awaken in the operating room and was taken to the recovery room in stable condition. There were no immediate complications of this operation. All counts were reported correct at end case. Blood loss was 100 cc. The patient was neurologically at her baseline postoperatively. CPT codes: 37677, 53812, 66035 x 2 Estimated Blood Loss 100 IV Fluids 1,000 Complications None Condition Stable Disposition PACU [facility] Billing Surgery - Charge Forward: Surgery Billing
[2023-02-20 14:23] LABS: Glucose Point of Care 252 mg/dl (65-105)
[2023-02-20] MEDS: fentaNYL CITRATE INJ (*CRX) 100 MCG/2 ML VIAL 25 MCG IV PUSH ×2 (14:34→14:45)
--- NOTE | 2023-02-20 14:36 | SUR.PHASEI ---
1420 - dr. browning aware of accucheck 252. no orders received
--- NOTE | 2023-02-20 16:22 | ADMGEN ---
This patient, Karli Troy, was admitted to Medical Room 254-01. Patient/family oriented to hospital policies and general routines including ID bracelet, bed and alarms, visiting hours, pain management, procedures, bathroom and other care routines, personal items, smoking policy, room service/diet, and visiting hours. Information on how to activate the Rapid Response Team has been discussed. Patient/Family are encouraged to report perceived risks to care and to ask questions if they do not understand what they are told or what they should do.
[2023-02-20] MEDS: HYDROcodone/acetaminophen (*CRX) 5-325 MG TABLET 1 TAB PO (16:55)
[2023-02-20] MEDS: TRIAMTERENE 37.5 MG/HCTZ 25 MG (MAXZIDE) TABLET 1 TAB PO (16:55)
[2023-02-20] MEDS: GABAPENTIN 300 MG CAPSULE 600 MG PO (16:56)
[2023-02-20] MEDS: carvediloL 6.25 MG TABLET PO (16:56)
[2023-02-20] MEDS: POTASSIUM CHLORIDE 10 MEQ ER TABLET PO (16:56)
[2023-02-20 17:24] LABS: Glucose Point of Care 292 mg/dl (65-105)
[2023-02-20] MEDS: INSULIN ASPART (*BKC) 100 UNITS/ML 25 UNITS SUB-Q (18:17)
[2023-02-20] MEDS: LOSARTAN POTASSIUM 25 MG TABLET PO (18:18)
[2023-02-20] MEDS: ROSUVASTATIN 10 MG TABLET 20 MG PO (18:18)
[2023-02-20] MEDS: DOCUSATE SODIUM 100 MG CAPSULE PO (20:19)
[2023-02-20] MEDS: HYDROcodone/acetaminophen (*CRX) 10-325 MG TABLET 1 TAB PO (20:22)
[2023-02-20 20:48] LABS: Glucose Point of Care 299 mg/dl (65-105)
[2023-02-20] MEDS: INSULIN ASPART (*BKC) 100 UNITS/ML 8 UNITS SUB-Q (22:14)
[2023-02-20] MEDS: MORPHINE SULFATE (*CRX) 2 MG/ML INJ IV PUSH (22:20)
[2023-02-21 02:55] VITALS: BP 97/44; PULSE 67; RESP 18; TEMP 36.4; O2SAT 97
[2023-02-21 03:15] VITALS: PULSE 68; RESP 18; O2SAT 96
[2023-02-21] MEDS: HYDROcodone/acetaminophen (*CRX) 10-325 MG TABLET 1 TAB PO ×2 (03:25→08:20)
[2023-02-21] MEDS: LEVOTHYROXINE SODIUM 25 MCG TABLET PO (05:58)
[2023-02-21 06:06] VITALS: BP 101/50; PULSE 78; RESP 18; TEMP 36.7; O2SAT 95
--- NOTE | 2023-02-21 06:49 | P.CONS_ITS ---
Assessment and Plan Assessment and plan (1) Foraminal stenosis of lumbar region: Code(s): M48.061 - Spinal stenosis, lumbar region without neurogenic claudication Status: Acute Assessment and Plan: 02/21/23: * Post op day 1 for elective Left L3-5 hemilaminectomy and L3-4 and L4-5 of far lateral foraminotomy and microdiskectomy * PT and OT ordered for evaluation and treatment plan * Incentive spirometry 10x/hr * Continue Pain control with [place] and Morphine * Advance diet as tolerated * Continue Prednisone 10 mg daily and Neurontin 600mg BID * Started on cyclobenzaprine for muscle spasms * Monitor daily CBC, BMP (2) Facet arthropathy, lumbar: Code(s): M47.816 - Spondylosis without myelopathy or radiculopathy, lumbar region Status: Acute Assessment and Plan: see above (3) Spondylolisthesis at L4-L5 level: Code(s): M43.16 - Spondylolisthesis, lumbar region Status: Acute Assessment and Plan: see above (4) Lumbar stenosis: Code(s): M48.061 - Spinal stenosis, lumbar region without neurogenic claudication Status: Acute Assessment and Plan: see above (5) Diabetes: Code(s): E11.9 - Type 2 diabetes mellitus without complications Status: Chronic Assessment and Plan: 02/21/23: * Last Hgb A1C done on 02/20/23 is 7.5 * BG range between 185-299 * Patient usually controlled with Farxiga 10 mg daily and glipizide 20 mg daily, will hold these and start high dose SSI for tighter glycemic control and start with 15 units of Insulin aspart with meals. * Patient currently on Prednisone * Continue with accu checks ac/hs * Start diabetic diet today (6) HTN (hypertension): Code(s): I10 - Essential (primary) hypertension Status: Chronic Assessment and Plan: 02/21/23: * Patient had 2 low blood pressure readings this morning 97/44 and 101/50. However now she is running 128/76- 153-68. * Continue with Losartan, Triamterene 37.5mg/[id number], and Coreg today due to her hypotension * Continue lasix (7) Hyperlipidemia: Code(s): E78.5 - Hyperlipidemia, unspecified Status: Chronic Assessment and Plan: 02/21/23: * Continue Rosuvastatin 20 mg po hs (8) MIRTA (obstructive sleep apnea): Code(s): G47.33 - Obstructive sleep apnea (adult) (pediatric) Status: Chronic Assessment and Plan: 02/21/23: * Order already in for patient to use home Bipap. (9) Obesity: Code(s): E66.9 - Obesity, unspecified Status: Chronic Assessment and Plan: 02/24/23: * 132.7kg, BMI45.8 HPI Data of Consult Date/Time: 02/21/23 06:49 Requesting Physician: Efrain Hobson MD Primary Care Provider: BRIQUETTE MACHINE OPERATOR HELPER PHYSICIAN Consult Narrative Narrative: Karli Troy is a 62 year old female who came in on 02/20/23 for an elective left L3-5 hemilaminectomy and L3-4 and L4-5 of far lateral foraminotomy and microdiskectomy. She is now post op day 1. We were consulted for medical management. On examination today, patient is alert and oriented x4 and sitting up in chair with at the bedside. Patient states that her pain is well controlled on her pain medication. Incision with surgical glue open to air, well approximated, no signs of infection. Patient worked with PT and OT and did well. She feels she is ready to go home today. labs today revealed white blood cell count 12.9, hemoglobin 0.6, hematocrit 37.9, sodium 134, potassium 4.0, BUN 45, creatinine 1.9, blood sugars range 197 to 22
--- NOTE | 2023-02-21 06:49 | WPDCN ---
Assessment and Plan Assessment and plan (1) Foraminal stenosis of lumbar region: Code(s): M48.061 - Spinal stenosis, lumbar region without neurogenic claudication Status: Acute Assessment and Plan: 02/21/23: Post op day 1 for elective Left L3-5 hemilaminectomy and L3-4 and L4-5 of far lateral foraminotomy and microdiskectomy PT and OT ordered for evaluation and treatment plan Incentive spirometry 10x/hr Continue Pain control with [place] and Morphine Advance diet as tolerated Continue Prednisone 10 mg daily and Neurontin 600mg BID Started on cyclobenzaprine for muscle spasms Monitor daily CBC, BMP (2) Facet arthropathy, lumbar: Code(s): M47.816 - Spondylosis without myelopathy or radiculopathy, lumbar region Status: Acute Assessment and Plan: see above (3) Spondylolisthesis at L4-L5 level: Code(s): M43.16 - Spondylolisthesis, lumbar region Status: Acute Assessment and Plan: see above (4) Lumbar stenosis: Code(s): M48.061 - Spinal stenosis, lumbar region without neurogenic claudication Status: Acute Assessment and Plan: see above (5) Diabetes: Code(s): E11.9 - Type 2 diabetes mellitus without complications Status: Chronic Assessment and Plan: 02/21/23: Last Hgb A1C done on 02/20/23 is 7.5 BG range between 185-299 Patient usually controlled with Farxiga 10 mg daily and glipizide 20 mg daily, will hold these and start high dose SSI for tighter glycemic control and start with 15 units of Insulin aspart with meals. Patient currently on Prednisone Continue with accu checks ac/hs Start diabetic diet today (6) HTN (hypertension): Code(s): I10 - Essential (primary) hypertension Status: Chronic Assessment and Plan: 02/21/23: Patient had 2 low blood pressure readings this morning 97/44 and 101/50. However now she is running 128/76- 153-68. Continue with Losartan, Triamterene 37.5mg/[id number], and Coreg today due to her hypotension Continue lasix (7) Hyperlipidemia: Code(s): E78.5 - Hyperlipidemia, unspecified Status: Chronic Assessment and Plan: 02/21/23: Continue Rosuvastatin 20 mg po hs (8) MIRTA (obstructive sleep apnea): Code(s): G47.33 - Obstructive sleep apnea (adult) (pediatric) Status: Chronic Assessment and Plan: 02/21/23: Order already in for patient to use home Bipap. (9) Obesity: Code(s): E66.9 - Obesity, unspecified Status: Chronic Assessment and Plan: 02/24/23: 132.7kg, BMI45.8 HPI Data of Consult Date/Time: 02/21/23 06:49 Requesting Physician: Efrain Hobson MD Primary Care Provider: [facility] Consult Narrative Narrative: Karli Troy is a 62 year old female who came in on 02/20/23 for an elective left L3-5 hemilaminectomy and L3-4 and L4-5 of far lateral foraminotomy and microdiskectomy. She is now post op day 1. We were consulted for medical management. On examination today, patient is alert and oriented x4 and sitting up in chair with at the bedside. Patient states that her pain is well controlled on her pain medication. Incision with surgical glue open to air, well approximated, no signs of infection. Patient worked with PT and OT and did well. She feels she is ready to go home today. labs today revealed white blood cell count 12.9, hemoglobin 0.6, hematocrit 37.9, sodium 134, potassium 4.0, BUN 45, creatinine 1.9, blood sugars range 197 to 222. VSS, she remains afebrile, on room air. She was placed back on her home medication tolerating fine. From medical standpoint patient discharged home. Review of Systems Review of Systems: All systems reviewed & are unremarkable except as noted in HPI and below Constitutional: Constitutional: Reports as per HPI and Reports no additional constitutional complaints Eyes: Eyes: Reports as per HPI and Reports no additional eye compla
[2023-02-21 07:23] LABS: Hematocrit 37.9 % (37.0-47.0); Hemoglobin 11.6 g/dL (12.0-15.0); Mean Corpuscular HGB Conc 30.6 g/dl (32-36); Mean Corpuscular Hemoglobin 30.3 pg (26-34); Mean Platelet Volume 10.1 fl (7.4-10.4); Platelet Count Result 185 k/mm3 (150-375); Red Blood Count 3.83 M/mm3 (4.2-5.4); Red Cell Distribution Width 15.8 % (11.5-14.5); White Blood Count 12.9 K/mm3 (4.5-10.0)
[2023-02-21 07:45] VITALS: BP 153/68; PULSE 80; RESP 17; O2SAT 97
[2023-02-21 08:15] LABS: Anion Gap 9 mmol/L (8-16); Blood Urea Nitrogen 45 mg/dL (7-17); Calcium 9.4 mg/dL (8.4-10.2); Carbon Dioxide 21 mmol/L (22-30); Chloride 104 mmol/L (98-107); Estimated CRCL calculation 41 ml/min; Estimated Glomerular Filt Rate 27; Glucose 216 mg/dL (65-110); Potassium 4.1 mmol/L (3.4-5.0); Sodium 134 mmol/L (137-145)
[2023-02-21] MEDS: GABAPENTIN 300 MG CAPSULE 600 MG PO (08:20)
[2023-02-21] MEDS: POTASSIUM CHLORIDE 10 MEQ ER TABLET PO (08:20)
[2023-02-21] MEDS: EMPAGLIFLOZIN 25 MG TABLET BY MOUTH (08:20)
[2023-02-21] MEDS: LORATADINE 10 MG TABLET PO (08:20)
[2023-02-21] MEDS: predniSONE 10 MG TABLET PO (08:20)
[2023-02-21] MEDS: FUROSEMIDE 40 MG TABLET PO (08:20)
[2023-02-21] MEDS: DOCUSATE SODIUM 100 MG CAPSULE PO (08:20)
[2023-02-21] MEDS: INSULIN ASPART (*BKC) 100 UNITS/ML 15 UNITS SUB-Q ×2 (08:21→12:13)
[2023-02-21 08:22] LABS: Glucose Point of Care 197 mg/dl (65-105)
[2023-02-21] MEDS: glipiZIDE XL 5 MG TABCR 20 MG PO (08:23)
[2023-02-21 12:00] VITALS: BP 128/76; PULSE 70; RESP 17; TEMP 36.3; O2SAT 98
[2023-02-21] MEDS: INSULIN ASPART (*BKC) 100 UNITS/ML SUB-Q (12:13)
[2023-02-21 12:16] LABS: Glucose Point of Care 222 mg/dl (65-105)
[2023-02-21] MEDS: HYDROcodone/acetaminophen (*CRX) 10-325 MG TABLET PO (13:04)
== END 2023-02-21 16:25 | disposition home or self-care (01) ==
LOC: ANHSURGERY 09:13 → ANH2MED 15:57
PROVIDERS: Nurse Practitioner Acute Care; Visit Provider Neurological Surgery
PROC: (CPT 63030; principal; 2023-02-20 11:30)
DX: M48.061 Spinal stenosis, lumbar region without neurogenic claudication (principal); M47.816 Spondylosis without myelopathy or radiculopathy, lumbar region; M43.16 Spondylolisthesis, lumbar region; I44.0 Atrioventricular block, first degree; I44.4 Left anterior fascicular block; R93.1 Abnormal findings on diagnostic imaging of heart and coronary circulation; G47.33 Obstructive sleep apnea (adult) (pediatric); E11.9 Type 2 diabetes mellitus without complications; E78.5 Hyperlipidemia, unspecified; I10 Essential (primary) hypertension; E66.9 Obesity, unspecified; Z68.42 Body mass index [BMI] 45.0-49.9, adult; Z79.01 Long term (current) use of anticoagulants; Z79.84 Long term (current) use of oral hypoglycemic drugs; Z79.4 Long term (current) use of insulin; Z79.891 Long term (current) use of opiate analgesic
CPT/HCPCS: 63047; 63048; 36415; 80048; 82948; 83036; 84132; 85027; 93005; 97161; 97165; 97530; 97535; 99199; A9270; J0330; J0690; J1100; J1815; J2250; J2270; J2405; J2704; J3010; J7120; J7512